=== PATIENT | male | born 1995 | race Caucasian/White ===

== ENCOUNTER → 2018-05-05 | Day surgery (SDC) | payer BC ==
[~2018-05-05] MED LIST: FENTANYL CITRATE/PF 100MCG/2 ML INJ ONE; LIDOCAINE HCL 2% LOCAL INJ 5 ML SDV VIAL INJ ONE; MIDAZOLAM HCL 2 MG/2 ML VIAL ONE; PROPOFOL IV EMULSION 10 MG/ML 20 ML VIAL ONE; PROTONIX40 MG/ML; SUCRALFATE1 GM PO
[2018-05-05 16:44] VITALS: BP 116/72
--- NOTE | 2018-05-05 17:07 | Operative Report ---
DATE OF PROCEDURE: May 05, 2018 REFERRING PHYSICIAN: Dr. Mcdonough. PROCEDURE PERFORMED: Esophagogastroduodenoscopy with biopsies. INDICATIONS FOR ESOPHAGOGASTRODUODENOSCOPY: Upper abdominal pain, nausea, heartburn indigestion. MEDICATION: Patient was done under MAC. Please see anesthesiologist's note. PROCEDURE: With patient in the left lateral decubitus position, the flexible fiberoptic Olympus gastroscope was introduced into the esophagus under direct visualization without any difficulty. There was some patchy erythema noted in the distal esophagus. A minute tongue of velvety red mucosa was noted to extend proximally from the GE junction, and that was biopsied to rule out Jimenez's. The scope was then advanced with ease into the stomach, and the mucosa overlying the antrum and the body revealed some patchy intense erythema and low-grade to moderate edema and biopsies were obtained and sent to stain for H. pylori. Pylorus appeared to be of normal contour and shape, was intubated with ease, and the scope was advanced all the way to the 2nd portion of the duodenum. The scope was then withdrawn slowly, and biopsies were obtained from the proximal 2nd portion to rule out sprue. Mucosa overlying the duodenal bulb appeared to be within normal limits. The scope was then withdrawn back into the stomach and retroflexed, and the mucosa overlying the fundus and the cardia appeared to be within normal limits. The scope was then straightened out. The stomach was decompressed. The scope was subsequently withdrawn. Patient tolerated the procedure well. IMPRESSION: 1. Distal esophagitis, mild. 2. Rule out Jimenez's esophagus. 3. Gastritis biopsied. Biopsies sent to stain for H. pylori. 4. Rule out sprue. PLAN: Follow up histology. Increase Protonix to 40 mg 1 p.o. a.c. b.i.d. and increase Carafate to 1 gram p.o. a.c. t.i.d. and nightly. Job#: [id number] EV cc:TOM MCDONOUGH MD
== END | disposition home or self-care (01) ==
LOC: OR 13:29
PROVIDERS: ATTEND Internal Medicine Gastroenterology
DX: K29.70 Gastritis, unspecified, without bleeding (principal); K20.9 Esophagitis, unspecified; K22.8 Other specified diseases of esophagus; R19.7 Diarrhea, unspecified; R15.2 Fecal urgency; Z88.2 Allergy status to sulfonamides; Z91.040 Latex allergy status; Z68.27 Body mass index [BMI] 27.0-27.9, adult; Z90.49 Acquired absence of other specified parts of digestive tract
CPT/HCPCS: 43239; J2001; J2250